=== PATIENT | female | born 1955 | race African-American/Black ===

== ENCOUNTER → 2017-11-08 | Outpatient (CLI) | payer MEDICARE, MEDICAID ==
[~2017-11-08] MED LIST: AMLO10TA2 PO; BIOT25005 PO; CALC600T4 PO; CLON0.2T PO; CYAN50003 PO; CYCL5TAB PO; DICL112S2 TP; GABAPE PO; GABAPENTIN PO; LOSA100T6 PO; METH500T7 PO; METO25TA91 PO; TRAZ50TA18 PO; Vitamin d PO
== END ==
LOC: STAR 12:18
PROVIDERS: ATTEND Orthopaedic Surgery Orthopaedic Surgery of the Spine
DX: Z02.9 Encounter for administrative examinations, unspecified (principal)

== ENCOUNTER 2017-11-14 07:31 | Inpatient (IN) | payer MEDICARE, MEDICAID ==
[~2017-11-14] VITALS: Ht 185.4 cm; Wt 113.6 kg
[~2017-11-14 07:31] MED LIST changes: +BUPIVACAINE/PF 0.25% ONE; +EPINEPHRINE 1 MG/ML, 1ML ONE; -GABAPENTIN PO; +THROMBIN 5,000 UNIT VIAL TP ONE
[2017-11-14 08:23] VITALS: BP 137/89
[2017-11-14] MEDS ORDERED: GABAPENTIN PO (08:37)
[2017-11-14] MEDS ORDERED: ONDANSETRON ODT 8 MG PO ONE (09:00)
[2017-11-14] MEDS ORDERED: GABAPENTIN 300 MG CAPSULE PO ONE (09:00)
[2017-11-14] MEDS ORDERED: SCOPOLAMINE PATCH, 1.5MG PATCH.TD72 TD ONE ×2 (09:00→09:07)
[2017-11-14] MEDS ORDERED: ACETAMINOPHEN 500 MG TABLET PO ONE (09:00)
[2017-11-14] MEDS ORDERED: OxyconTIN ER 20 MG TAB.ER PO ONE (09:00)
[2017-11-14] MEDS ORDERED: GABAPENTIN 300 MG CAPSULE ONE ×2 (09:07→09:08)
[2017-11-14] MEDS ORDERED: ONDANSETRON ODT 8 MG ONE (09:07)
[2017-11-14] MEDS ORDERED: MIDAZOLAM 1 MG/ML, 2ML ONE (09:07)
[2017-11-14] MEDS ORDERED: OxyconTIN ER 20 MG TAB.ER ONE (09:07)
[2017-11-14] MEDS ORDERED: SUFentanil 50 MCG/ML, 1ML ONE (09:08)
[2017-11-14] MEDS ORDERED: PROPOFOL 10 MG/ML, 20ML ONE ×4 (09:09)
[2017-11-14] MEDS ORDERED: ROCURONIUM 10MG/ML,5ML ONE (09:10)
[2017-11-14] MEDS ORDERED: CEFAZOLIN 1,000 MG ONE ×4 (09:11→13:21)
[2017-11-14] MEDS ORDERED: DEXAMETHASONE 4 MG/ML, 1ML ONE ×2 (09:12)
[2017-11-14] MEDS: SODIUM CHLORIDE 0.9% 1,000 ML IV SCH (09:24)
[2017-11-14] MEDS ORDERED: LORazepam 2 MG/ML, 1ML IVPush PRN (09:30)
[2017-11-14] MEDS ORDERED: PROMETHAZINE 25 MG/ML, 1ML IV PRN (09:30)
[2017-11-14] MEDS ORDERED: MEPERIDINE/PF 25MG/0.5ML IVPush PRN (09:30)
[2017-11-14] MEDS ORDERED: morphine SULFATE 10 MG/ML, 1ML IV PRN ×2 (09:30→16:30)
[2017-11-14] MEDS ORDERED: LABETALOL 5MG/ML, 20ML IV PRN (09:30)
[2017-11-14] MEDS ORDERED: hydrALAzine 20 MG/ML, 1ML IV PRN (09:30)
[2017-11-14] MEDS ORDERED: OXYcodone 5 MG/5 ML ORAL.SOL UDC PO PRN (09:30)
[2017-11-14] MEDS ORDERED: PROPOFOL 50 ML ONE ×3 (09:47→12:17)
[2017-11-14] MEDS ORDERED: DEXMEDETOMIDINE 200 MCG/2 ML ONE (10:07)
[2017-11-14] MEDS ORDERED: REMIFENTANIL 2 MG ONE (10:13)
[2017-11-14] MEDS ORDERED: PHENYLEPHRINE 10 MG/ML ONE (10:19)
[2017-11-14] MEDS ORDERED: SUCCINYLCHOLINE 20 MG/ML, 10ML ONE (10:19)
[2017-11-14] MEDS ORDERED: VANCOMYCIN 1,000 MG ONE (12:09)
[2017-11-14] MEDS ORDERED: VANCOMYCIN 500 MG ONE (12:09)
[2017-11-14] MEDS ORDERED: FENTANYL PF 100 MCG/2ML ONE (14:48)
[2017-11-14] MEDS: FENTANYL PF 100 MCG/2ML IV PRN ×3 (14:52→15:08)
[2017-11-14] MEDS ORDERED: DIPHENHYDRAMINE 50 MG/ML, 1ML IVPush PRN (16:30)
[2017-11-14] MEDS ORDERED: ONDANSETRON 2MG/ML, 2ML IV PRN (16:30)
[2017-11-14] MEDS: D5%-0.9% NACL+KCL 20MEQ 1,000 ML IV SCH (16:30)
[2017-11-14] MEDS ORDERED: DIPHENHYDRAMINE 50 MG/ML, 1ML IM PRN (16:30)
[2017-11-14] MEDS ORDERED: MAGNESIUM HYDROXIDE 8%, 30ML UDC PO PRN (16:30)
[2017-11-14] MEDS ORDERED: PROMETHAZINE 25 MG/ML, 1ML IM PRN (16:30)
[2017-11-14] MEDS ORDERED: BISACODYL 10 MG SUPP PR PRN (16:30)
[2017-11-14] MEDS ORDERED: DIPHENHYDRAMINE 50 MG CAPSULE PO PRN (16:30)
[2017-11-14] MEDS: METHOCARBAMOL 500 MG TABLET PO SCH (20:18)
[2017-11-14] MEDS: CEFAZOLIN PMX 1GM/50ML 50 ML IVPB SCH (20:18)
[2017-11-14] MEDS: GABAPENTIN 300 MG CAPSULE PO SCH (20:18)
[2017-11-14 20:34] VITALS: BP 162/90
[2017-11-15 02:19] VITALS: BP 138/85
[2017-11-15] MEDS: D5%-0.9% NACL+KCL 20MEQ 1,000 ML IV SCH (02:30)
[2017-11-15] MEDS: CEFAZOLIN PMX 1GM/50ML 50 ML IVPB SCH (05:00)
[2017-11-15 05:45] LABS: BASOPHILS # (AUTO) 0.04 x10^3/uL (0-0.1); BASOPHILS % (AUTO) 0 % (0-1); EOSINOPHILS % (AUTO) 0 % (1-7); LYMPHOCYTES # (AUTO) 0.89 x10^3/uL (1-3.4); LYMPHOCYTES % (AUTO) 9 % (22-44); MD NO; MEAN CORPUSCULAR HEMOGLOBIN 27.9 pg (27.0-34.8); MEAN CORPUSCULAR HGB CONC 32.2 g/dL (32.4-35.8); MEAN CORPUSCULAR VOLUME 86.8 fL (80-100); MEAN PLATELET VOLUME 8.6 fL (7.4-10.4); MONOCYTES # (AUTO) 0.22 x10^3/uL (0.2-0.8); MONOCYTES % (AUTO) 2 % (2-9); NEUTROPHILS # (AUTO) 8.85 x10^3/uL (1.8-6.8); NEUTROPHILS % (AUTO) 89 % (42-75); PLATELET COUNT 232 x10^3/uL (130-400); RED BLOOD COUNT 4.19 x10^6/uL (3.82-5.3); RED CELL DISTRIBUTION WIDTH 13.8 % (9.6-15.2)
[2017-11-15] MEDS: SODIUM CHLORIDE 0.9% 1,000 ML IV SCH (05:48)
[2017-11-15 05:53] LABS: ANION GAP 10 mmol/L (5-15); CALCIUM 8.9 mg/dL (8.5-10.1); CHLORIDE 109 mmol/L (98-107); CREATININE 1.31 mg/dL (0.55-1.02)
[2017-11-15] MEDS ORDERED: METOPROLOL SUCCINATE 25 MG TAB.ER.24H PO SCH (06:00)
[2017-11-15] MEDS ORDERED: TRAZODONE 50MG TABLET PO SCH (09:00)
[2017-11-15] MEDS ORDERED: AMLODIPINE 5 MG TABLET PO SCH (09:00)
[2017-11-15] MEDS ORDERED: LOSARTAN 50MG TABLET PO SCH (09:00)
[2017-11-15] MEDS: SENNA/DOCUSATE TABLET PO SCH (09:18)
[2017-11-15] MEDS: HYDROcodone/APAP 10/325 MG TABLET PO PRN ×3 (09:18→18:08)
[2017-11-15] MEDS: METHOCARBAMOL 500 MG TABLET PO SCH ×3 (09:18→20:26)
[2017-11-15] MEDS: MAGNESIUM HYDROXIDE 8%, 30ML UDC PO SCH (09:21)
[2017-11-15 09:56] VITALS: BP 129/79
[2017-11-15] MEDS: NS + 20MEQ KCL 1,000 ML IV SCH (11:40)
[2017-11-15] MEDS: CEFAZOLIN PMX 1GM/50ML 50 ML IV SCH ×2 (13:28→20:36)
[2017-11-15 15:24] VITALS: BP 135/86
[2017-11-15 18:48] VITALS: BP 147/89
[2017-11-15] MEDS: GABAPENTIN 300 MG CAPSULE PO SCH (20:26)
[2017-11-15] MEDS: TRAZODONE 50MG TABLET PO SCH (20:27)
[2017-11-15] MEDS: AMLODIPINE 5 MG TABLET PO SCH (20:27)
[2017-11-15] MEDS: LOSARTAN 50MG TABLET PO SCH (20:28)
[2017-11-16 00:55] VITALS: BP 134/73
[2017-11-16] MEDS: SODIUM CHLORIDE 0.9% 1,000 ML IV SCH ×2 (01:30→21:30)
[2017-11-16] MEDS: HYDROcodone/APAP 10/325 MG TABLET PO PRN ×4 (01:45→16:03)
[2017-11-16] MEDS: CEFAZOLIN PMX 1GM/50ML 50 ML IV SCH ×3 (05:12→22:25)
[2017-11-16 05:34] LABS: BASOPHILS # (AUTO) 0.07 x10^3/uL (0-0.1); BASOPHILS % (AUTO) 1 % (0-1); EOSINOPHILS % (AUTO) 0 % (1-7); LYMPHOCYTES # (AUTO) 3.02 x10^3/uL (1-3.4); LYMPHOCYTES % (AUTO) 27 % (22-44); MD NO; MEAN CORPUSCULAR HEMOGLOBIN 28.2 pg (27.0-34.8); MEAN CORPUSCULAR HGB CONC 32.3 g/dL (32.4-35.8); MEAN CORPUSCULAR VOLUME 87.2 fL (80-100); MEAN PLATELET VOLUME 8.3 fL (7.4-10.4); MONOCYTES # (AUTO) 0.56 x10^3/uL (0.2-0.8); MONOCYTES % (AUTO) 5 % (2-9); NEUTROPHILS # (AUTO) 7.54 x10^3/uL (1.8-6.8); NEUTROPHILS % (AUTO) 67 % (42-75); PLATELET COUNT 239 x10^3/uL (130-400); RED BLOOD COUNT 4.04 x10^6/uL (3.82-5.3)
[2017-11-16 05:45] LABS: ANION GAP 4 mmol/L (5-15); CALCIUM 8.7 mg/dL (8.5-10.1); CHLORIDE 110 mmol/L (98-107); CREATININE 1.11 mg/dL (0.55-1.02)
[2017-11-16 06:29] VITALS: BP 128/81
[2017-11-16] MEDS: SENNA/DOCUSATE TABLET PO SCH (08:09)
[2017-11-16] MEDS: METHOCARBAMOL 500 MG TABLET PO SCH ×3 (08:09→22:25)
[2017-11-16] MEDS: MAGNESIUM HYDROXIDE 8%, 30ML UDC PO SCH (08:09)
[2017-11-16] MEDS: NS + 20MEQ KCL 1,000 ML IV SCH (08:18)
[2017-11-16 15:20] VITALS: BP 145/88
[2017-11-16 19:23] VITALS: BP 151/94
[2017-11-16] MEDS ORDERED: METOPROLOL SUCCINATE 25 MG TAB.ER.24H PO SCH (21:00)
[2017-11-16] MEDS: AMLODIPINE 5 MG TABLET PO SCH (22:25)
[2017-11-16] MEDS: TRAZODONE 50MG TABLET PO SCH (22:25)
[2017-11-16] MEDS: LOSARTAN 50MG TABLET PO SCH (22:25)
[2017-11-16] MEDS: GABAPENTIN 300 MG CAPSULE PO SCH (22:25)
[2017-11-17 00:28] VITALS: BP 157/99
[2017-11-17] MEDS: HYDROcodone/APAP 5/325 TABLET PO PRN ×3 (01:11→09:04)
[2017-11-17] MEDS: CEFAZOLIN PMX 1GM/50ML 50 ML IV SCH ×2 (05:37→13:09)
[2017-11-17 07:15] VITALS: BP 117/75
[2017-11-17] MEDS: MAGNESIUM HYDROXIDE 8%, 30ML UDC PO SCH (08:50)
[2017-11-17] MEDS: SENNA/DOCUSATE TABLET PO SCH (08:51)
[2017-11-17] MEDS: METHOCARBAMOL 500 MG TABLET PO SCH (08:51)
[2017-11-17] MEDS: NS + 20MEQ KCL 1,000 ML IV SCH (09:04)
[2017-11-17] MEDS ORDERED: HYDR-3240 PO (12:11)
[2017-11-17] MEDS ORDERED: CEPH-368 PO (12:13)
[2017-11-17] MEDS ORDERED: METH500T97 PO (12:14)
[2017-11-17 13:28] VITALS: BP 129/90
[2017-11-17 14:32] VITALS: BP 137/88
== END 2017-11-17 14:45 | disposition left against medical advice (07) | DRG 472 ==
LOC: ORIP 07:31 → 4NOR 16:12
PROVIDERS: ADMIT Orthopaedic Surgery Orthopaedic Surgery of the Spine; ATTEND Orthopaedic Surgery Orthopaedic Surgery of the Spine
PROC: 01N10ZZ Release Cervical Nerve, Open Approach (ICD-10-PCS; 2017-11-14)
PROC: 0RB30ZZ Excision of Cervical Vertebral Disc, Open Approach (ICD-10-PCS; 2017-11-14)
PROC: 0RG2071 Fusion of 2 or more Cervical Vertebral Joints with Autologous Tissue Substitute, Posterior Approach, Posterior Column, Open Approach (ICD-10-PCS; principal; 2017-11-14 10:00)
DX: M48.02 Spinal stenosis, cervical region (principal); G95.9 Disease of spinal cord, unspecified; N17.9 Acute kidney failure, unspecified; G95.20 Unspecified cord compression; M54.12 Radiculopathy, cervical region; Z88.6 Allergy status to analgesic agent; I12.9 Hypertensive chronic kidney disease with stage 1 through stage 4 chronic kidney disease, or unspecified chronic kidney disease; N18.9 Chronic kidney disease, unspecified
CPT/HCPCS: 36415; 72040; 80048; 85025; 95938; 95941; C1713; J0171; J0690; J1100; J2250; J2270; J2704; J3010; J3370; J3480; J3490; Q0162; J0330; J1200; J2370; J7030

== ENCOUNTER → 2018-05-14 | Outpatient (CLI) | payer MEDICARE, MEDICAID ==
[~2018-05-14] MED LIST changes: -AMLO10TA2 PO; +AMLO10TA6 PO; +ATOR20TA9 PO; -BUPIVACAINE/PF 0.25% ONE; +CEPH-368 PO; +CYCL-259 PO; +DICL2SOL TP; -EPINEPHRINE 1 MG/ML, 1ML ONE; +GABAPENTIN PO; +HYDR-3240 PO; +HYDR-3307 PO; -LOSA100T6 PO; +LOSA100T7 PO; +METH500T97 PO; +NAPR250T6 PO; -THROMBIN 5,000 UNIT VIAL TP ONE; +TRAM50TA2 PO; +TRAZ-136 PO; -TRAZ50TA18 PO
[2018-05-14 11:21] LABS: BASOPHILS # (AUTO) 0.01 x10^3/uL (0-0.1); BASOPHILS % (AUTO) 0 % (0-1); EOSINOPHILS % (AUTO) 0 % (1-7); LYMPHOCYTES # (AUTO) 1.39 x10^3/uL (1-3.4); LYMPHOCYTES % (AUTO) 14 % (22-44); MD NO; MEAN CORPUSCULAR HEMOGLOBIN 27.4 pg (27.0-34.8); MEAN CORPUSCULAR HGB CONC 31.8 g/dL (32.4-35.8); MEAN PLATELET VOLUME 8.6 fL (7.4-10.4); MONOCYTES # (AUTO) 0.69 x10^3/uL (0.2-0.8); MONOCYTES % (AUTO) 7 % (2-9); NEUTROPHILS # (AUTO) 7.72 x10^3/uL (1.8-6.8); NEUTROPHILS % (AUTO) 79 % (42-75); PLATELET COUNT 303 x10^3/uL (130-400); RED BLOOD COUNT 4.41 x10^6/uL (3.82-5.3); RED CELL DISTRIBUTION WIDTH 14.8 % (9.6-15.2)
[2018-05-14 11:29] LABS: ALANINE AMINOTRANSFERASE 19 U/L (12-78); ALBUMIN 4.2 g/dL (3.4-5.0); ANION GAP 6 mmol/L (5-15); CALCIUM 9.1 mg/dL (8.5-10.1); CHLORIDE 111 mmol/L (98-107)
[2018-05-14 11:32] LABS: ALKALINE PHOSPHATASE 127 U/L (45-117); BILIRUBIN,TOTAL 0.4 mg/dL (0.2-1.0); TOTAL PROTEIN 7.7 g/dL (6.4-8.2)
[2018-05-14 11:33] LABS: INTERNATIONAL NORMALIZED RATIO 1.05 (0.93-1.1); PROTHROMBIN TIME 10.8 Seconds (9.6-11.5)
[2018-05-14 12:57] LABS: HEMOGLOBIN A1C 5.9 % (4.2-6.3)
== END | disposition home or self-care (01) ==
LOC: STAR 10:02
PROVIDERS: ATTEND Orthopaedic Surgery
DX: Z01.818 Encounter for other preprocedural examination (principal); M17.11 Unilateral primary osteoarthritis, right knee
CPT/HCPCS: 36415; 80053; 83036; 85025; 85610; 85730; 87081; 93005